=== PATIENT | male | born 1990 | race African-American/Black ===

== ENCOUNTER 2019-02-24 17:16 | Emergency (ER) | payer OTHER ==
[~2019-02-24] VITALS: Ht 180.3 cm; Wt 78.0 kg
[2019-02-24 17:22] VITALS: Ht 180.3 cm; Wt 78.0 kg
[2019-02-24 19:32] VITALS: BP 121/72
== END 2019-02-24 19:32 | disposition home or self-care (01) ==
LOC: ED 17:16
DX: R06.4 Hyperventilation (principal)